=== PATIENT | male | born 1925 | race Caucasian/White ===

== ENCOUNTER → 2016-08-19 | Day surgery (SDC) | payer MEDICARE ==
[~2016-08-19] VITALS: Ht 162.6 cm; Wt 64.0 kg
[~2016-08-19] MED LIST: ALPH400C2 PO; ASPI1TAB69 PO; CHRO200T4 PO; COQ-100C2 PO; CYCLOPENTOLATE HCL 1% OPHT SOLN 2 ML BTL ONE; DICL75TA PO; DORZ2SOL7 EACH EYE; FLURBIPROFEN 0.03% OPHT SOLN 2.5 ML BTL ONE; HYALURONIDASE/LIDOCAINE/EPINEPHRINE/BUPIVACAINE 6 ML SYR ONE; LIDOCAINE HCL 1% 30 ML VIAL ONE; NIAC250T3 PO; PHENYLEPHRINE HCL 10% OPTH SOLN 5 ML BTL ONE; PRAV40TA PO; PROPARACAINE HCL 0.5% OPHT SOLN 15 ML BTL ONE; PROPOFOL 200 MG/20 ML AMP ONE; SINE25TA PO; SODIUM CHLORID 0.9% 500 ML INJ 500 ML ONE; TRAM50TA PO; TROPICAMIDE 1% OPHT SOLN 15 ML BTL ONE; VITA100036 PO
[2016-08-19 09:08] VITALS: BP 114/65; PULSE 65; RESP 18; TEMP 97.8; O2SAT 99
[2016-08-19 09:15] VITALS: PULSE 62
[2016-08-19] MEDS: TOBRAMYCIN/DEXAMETHASONE OPTH OINT 3.5 GM TUBE ONE ×2 (09:40→09:51)
[2016-08-19 10:03] VITALS: TEMP 98
[2016-08-19 10:40] VITALS: BP_DIAS 66; PULSE 68; RESP 16; O2SAT 95
--- NOTE | 2016-08-23 10:30 | MP ---
cc: GILMER MARTINEZ M.D. Corrected Copy: 08/27/16 DATE OF SURGERY: 08/19/2016 [facility] [id number] PREOPERATIVE DIAGNOSIS Visually significant cataract, left eye. POSTOPERATIVE DIAGNOSIS Visually significant cataract, left eye. OPERATION Phacoemulsification with posterior chamber lens implantation, left eye. SURGEON Gilmer Martinez MD ANESTHESIA Retrobulbar with MAC. COMPLICATIONS None. PROCEDURE After informed consent was obtained, the patient was brought into the operative suite and placed on appropriate monitors by the Anesthesia Service. The patient had received a prior retrobulbar injection of local anesthetic by the Anesthesia Service in the holding area. The patient's operative eye was then prepped and draped in the usual sterile fashion. A wire lid speculum was placed. A paracentesis incision was made in the peripheral cornea with a 1 mm mp keratome. The anterior chamber was filled with viscoelastic. The anterior chamber was then entered through a stepped, clear corneal incision using a sharp 3 mm mp keratome. A circular tear capsulorrhexis was then made with a bent needle cystitome. Following hydrodissection of the lens nucleus with balanced saline, phacoemulsification of the nucleus was performed using a modified chopping technique. The remaining cortex was removed with irrigation/aspiration. The prior two procedures were both performed using the handpieces of the [employer] phaco unit. The capsular bag was then filled with viscoelastic. The intraocular lens was then injected into the capsular bag and positioned. The type of intraocular lens and its power can be found elsewhere in this chart. The remaining viscoelastic was then removed from the anterior chamber with the IA handpiece. The anterior chamber was reformed with balanced saline. The wound was then closed securely with stromal hydration. It was found to be watertight to an intraocular pressure of at least 30 mmHg by palpation. A small amount of balanced salt solution was then removed through the paracentesis site and the intraocular pressure at the end of the case was approximately 20 by palpation. All drapes were then removed. TobraDex ointment was then placed in the eye, which was closed beneath a semi-pressure patch dressing. The patient tolerated this procedure well and left the operating room awake and alert. The patient is to follow-up in my office in the morning. MD MARY Driscoll /9:55 AM /12:31 PM
== END | disposition home or self-care (01) ==
LOC: PHSDC 07:03
PROVIDERS: ATTEND Optometrist Occupational Vision
DX: H25.12 Age-related nuclear cataract, left eye (principal)
CPT/HCPCS: 00142; 66984; J7040; V2632

== ENCOUNTER 2016-12-12 16:44 | Observation (INO) | payer MEDICARE ==
[2016-12-12] VITALS (10 sets, daily range): BP systolic 91–163; BP diastolic 46–74; PULSE 75–92; RESP 14–20; TEMP 99.2–103; O2SAT 94–97
[~2016-12-12] VITALS: Ht 162.6 cm; Wt 69.4 kg
[~2016-12-12 16:44] MED LIST changes: -CYCLOPENTOLATE HCL 1% OPHT SOLN 2 ML BTL ONE; -FLURBIPROFEN 0.03% OPHT SOLN 2.5 ML BTL ONE; -HYALURONIDASE/LIDOCAINE/EPINEPHRINE/BUPIVACAINE 6 ML SYR ONE; -LIDOCAINE HCL 1% 30 ML VIAL ONE; -PHENYLEPHRINE HCL 10% OPTH SOLN 5 ML BTL ONE; -PROPARACAINE HCL 0.5% OPHT SOLN 15 ML BTL ONE; -PROPOFOL 200 MG/20 ML AMP ONE; -SODIUM CHLORID 0.9% 500 ML INJ 500 ML ONE; -TROPICAMIDE 1% OPHT SOLN 15 ML BTL ONE
--- NOTE | 2016-12-12 17:23 | PD ---
HPI Chief Complaint: Dysuria, Confusion Time Seen by Provider: 17:13 Travel History International Travel<30 days: No Contact w/Intl Traveler<30days: No History of Present Illness HPI 89 year old male presenting with dysuria and hematuria since yesterday. The dysuria is sharp in quality. Associated symptoms include generalized weakness and mild confusion (per caregiver). He denies fever, coughing, shortness of breath, abdominal pain, nausea, vomiting, and diarrhea. Caregivers state that he has a history of bladder cancer with remote chemotherapy and unknown surgical procedure. PFSH Past Medical History Cancer: Yes (BLADDER TUMOR) Cardiovascular Problems: No High Cholesterol: Yes Coronary Artery Disease: Yes Diabetes: No Diminished Hearing: Yes Endocrine: No Glaucoma: Yes (RIGHT EYE ) Genitourinary: No Hepatitis: No Hiatal Hernia: No Hypertension: No Immune Disorder: No Musculoskeletal: Yes (ARTHRITIS) Neurologic: Yes (PARKINSONS) Respiratory: No Thyroid Disease: No Past Surgical History Abdominal Surgery: Yes (RIGHT INGUINAL HERNIA SURGERY) Cardiac Surgery: Yes (CAROTID ARTERY "CLEANED OUT") Ear Surgery: No Endocrine Surgery: No Eye Surgery: Yes (RIGHT EYE GROWTH REMOVAL, CATARACT SX RIGHT EYE) Genitourinary Surgery: Yes (BLADDER TUMOR CANCER REMOVED) Gynecologic Surgery: No Oral Surgery: Yes (PERMANENT UPPER BRIDGE) Pacemaker: No Thoracic Surgery: No Other Surgery: Yes Social History Alcohol Use: Yes (RARELY) Tobacco Use: No Substance Use: No Allergies-Medications (Allergen,Severity, Reaction): Coded Allergies: No Known Allergies (Verified , 12/12/16) Reported Meds & Prescriptions Reported Meds & Active Scripts Active Reported Carbidopa-Levodopa 25-100 Mg Tab 1 Tab PO 1800 Carbidopa-Levodopa 25-100 Mg Tab 1 Tab PO 1400 Carbidopa-Levodopa 25-100 Mg Tab 2 Tab PO 10AM Carbidopa-Levodopa 25-100 Mg Tab 1 Tab PO 6AM Ecotrin Low Strength (Aspirin) 81 Mg Tabdr 81 Mg PO DAILY Co Q 10 (Coenzyme Q10 (Ubidecarenone)) 100 Mg Cap Niacin 500 Mg Tab 250 Mg PO DAILY Tramadol (Tramadol HCl) 50 Mg Tab 50 Mg PO TID PRN Diclofenac Sodium DR (Diclofenac Sodium) 75 Mg Tabdr 75 Mg PO BID Vitamin D3 (Cholecalciferol) 1,000 Unit Cap 1,000 Units PO DAILY Cosopt Opth Drops (Dorzolamide-Timolol Opth Drops) 22.3-6.8 Mg/Ml Soln 1 Drop EACH EYE BID Pravachol (Pravastatin) 40 Mg Tab 40 Mg PO DAILY Review of Systems Except as stated in HPI: all other systems reviewed are Neg Physical Exam Narrative GENERAL: WD/WN in NAD. Elederly male. Holding still with parkinsonian gaze. SKIN: Warm and dry. HEAD: Atraumatic. Normocephalic. EYES: Pupils equal and round. No scleral icterus. No injection or drainage. ENT: No nasal bleeding or discharge. Mucous membranes pink and moist. NECK: Trachea midline. No JVD. CARDIOVASCULAR: Regular rate and rhythm. RESPIRATORY: No accessory muscle use. Clear to auscultation. Breath sounds equal bilaterally. GASTROINTESTINAL: Abdomen soft, non-tender, nondistended. Hepatic and splenic margins not palpable. MUSCULOSKELETAL: Extremities without clubbing, cyanosis, or edema. No obvious deformities. NEUROLOGICAL: Awake and alert. No obvious cranial nerve deficits. Motor grossly within normal limits. Five out of 5 muscle strength in the arms and legs. Normal speech. PSYCHIATRIC: Appropriate mood and affect; insight and judgment normal. Data Data Last Documented VS Vital Signs Date Time Temp Pulse Resp B/P Pulse Ox O2 Delivery O2 Flow Rate FiO2 12/12/16 20:39 99.7 12/12/16 20:20 78 19 91/46 96 Nasal Cannula 2 Orders Urinalysis - C+S If Indicated (12/12/16 17:15) Complete Blood Count With Diff (12/12/16 17:33) Comprehensive Metabolic Panel (12/12/16 17:33) Chest, Single Ap (12/12/16 17:33) Blood Glucose (12/12/16 17:33) Ecg Monitoring (12/12/16 17:33) Iv Access Insert/Monitor (12/12/16 17:33) Oximetry (12/12/16 17:33) Sodium Chloride 0.9% Flush (Ns Flush) (12/12/16 17:45) Urine Culture (12/12/16 17:50) Sodium Chlorid 0.9% 500 Ml Inj (Ns 500 M (12/12/16 19:15) Ceftriaxone Inj (Rocephin Inj) (12/12/16 19:15) Blood Culture (12/12/16 19:05) Lactic Acid (12/12/16 19:05) Acetaminophen (Tylenol) (12/12/16 19:45) Azithromycin Inj (Zithromax Inj) (12/12/16 19:45) Carbidopa-Levodopa 25-100 Mg (Sinemet 25 (12/12/16 20:15) Admit Order (Ed Use Only) (12/12/16 ) ^ Saline Lock (12/12/16 20:46) Resp Oxygen Frank C Titrat 1-4 L (12/12/16 ) Notify Dr: Other (12/12/16 20:46) Sodium Chloride 0.9% Flush (Ns Flush) (12/12/16 21:00) Sodium Chloride 0.9% Flush (Ns Flush) (12/12/16 21:00) Labs Laboratory Tests Test 12/12/16 12/12/16 12/12/16 17:50 18:14 19:20 Urine Collection Type CLEAN CATCH Urine Color YELLOW Urine Turbidity MOD Urine pH 6.0 Urine Specific [place] 1.023 Urine Protein 100 mg/dL Urine Glucose (UA) NEG mg/dL Urine Ketones TRACE mg/dL Urine Occult Blood LARGE Urine Nitrite NEG Urine Bilirubin NEG Urine Leukocyte Esterase MOD Urine RBC 25-49 /hpf Urine WBC 100-200 /hpf Urine WBC Clumps MOD Urine Squamous Epithelial 0-5 /hpf Cells Urine Amorphous Sediment FEW Urine Bacteria MOD /hpf Microscopic Urinalysis Comment CULTURE INDICATED Urine Collection Time 1750 White Blood Count 12.4 TH/MM3 Red Blood Count 3.98 MIL/MM3 Hemoglobin 12.0 GM/DL Hematocrit 36.5 % Mean Corpuscular Volume 91.6 FL Mean Corpuscular Hemoglobin 30.2 PG Mean Corpuscular Hemoglobin 33.0 % Concent Red Cell Distribution Width 14.1 % Platelet Count 179 TH/MM3 Mean Platelet Volume 8.0 FL Neutrophils (%) (Auto) 91.6 % Lymphocytes (%) (Auto) 3.4 % Monocytes (%) (Auto) 4.5 % Eosinophils (%) (Auto) 0.2 % Basophils (%) (Auto) 0.3 % Neutrophils # (Auto) 11.4 TH/MM3 Lymphocytes # (Auto) 0.4 TH/MM3 Monocytes # (Auto) 0.6 TH/MM3 Eosinophils # (Auto) 0.0 TH/MM3 Basophils # (Auto) 0.0 TH/MM3 CBC Comment DIFF FINAL Differential Comment Sodium Level 137 MEQ/L Potassium Level 4.8 MEQ/L Chloride Level 104 MEQ/L Carbon Dioxide Level 26.2 MEQ/L Anion Gap 7 MEQ/L Blood Urea Nitrogen 48 MG/DL Creatinine 1.70 MG/DL Estimat Glomerular Filtration 38 ML/MIN Rate Random Glucose 128 MG/DL Calcium Level 9.1 MG/DL Total Bilirubin 1.1 MG/DL Aspartate Amino Transf 27 U/L (AST/SGOT) Alanine Aminotransferase 9 U/L (ALT/SGPT) Alkaline Phosphatase 118 U/L Total Protein 8.0 GM/DL Albumin 3.5 GM/DL Lactic Acid Level 1.6 mmol/L MDM Medical Decision Making Medical Screen Exam Complete: Yes Emergency Medical Condition: Yes Differential Diagnosis Complicated UTI, sepsis, altered mental status, dementia, delirium, pneumonia. Narrative Course Patient was roomed in emergency department, signs symptoms consistent, acute UTI. No surgical criteria on vital signs, with blood cell count just over 12, 000. While patient was in the emergency department he spiked temperature to 103. Mechanized answers criteria at this time coupled with his mild delirium this would meet admission criteria. This was discussed with the caregivers who are agreeable. Blood cultures were drawn lactic acid was drawn, fluid resuscitation was started. Lactic acid pending at this time. Will be started on Rocephin. Urine culture sent. Hospitalist paged for admission. Discussed with Dr. Burks at 20:00 at the end of my shift to admit patient when hospitalist calls back. Sepsis Criteria SIRS Criteria (2 or more): Temp > 100.9 or < 96.8, WBC > 96671, < 4000 or > 10 % bands Sepsis Criteria (SIRS+source): Infect source susp/known Criteria Outcome: Meets sepsis criteria Diagnosis Primary Impression: UTI (urinary tract infection) Additional Impressions: Sepsis Delirium LUCI (acute kidney injury) Admitting Information Admitting Physician Requests: Admit Condition: Stable Bang Sandhu MD Dec 12, 2016 17:23
[2016-12-12] MEDS ORDERED: CO Q100C9 (17:29)
[2016-12-12] MEDS ORDERED: NIAC500T5 PO (17:29)
[2016-12-12] MEDS ORDERED: ASPI-147 PO (17:29)
[2016-12-12] MEDS ORDERED: SODIUM CHLORIDE 0.9% FLUSH 5 ML FLUSH IV FLUSH PRN (17:45)
--- NOTE | 2016-12-12 17:49 | RADRPT ---
EXAM DATE/TIME: 12/12/2016 17:42 [facility] COMPARISON: CHEST SINGLE AP, February 12, 2016, 13:00. INDICATIONS : Weakness, syncope, MEDICAL HISTORY : None. SURGICAL HISTORY : None. ENCOUNTER: Initial ACUITY: 1 day PAIN SCORE: 0/10 LOCATION: Bilateral chest FINDINGS: A single view of the chest demonstrates cardiomegaly with bibasilar densities. Tortuous thoracic aort a.. Osseous structures are intact. Scoliosis and degenerative changes. Calcified granuloma right upp er lobe. Left humeral prosthesis CONCLUSION: Cardiomegaly with bibasilar densities likely atelectasis. Wong Gee MD on December 12, 2016 at 17:48 Board Certified Radiologist. This report was verified electronically.
[2016-12-12 18:25] LABS: AUTOMATED NEUTROPHIL # 11.4 TH/MM3 (1.8-7.7); BASOPHIL % 0.3 % (0.0-2.0); EOSINOPHIL % 0.2 % (0.0-4.0); HEMATOCRIT 36.5 % (39.0-51.0); LYMPH % 3.4 % (9.0-44.0); LYMPHOCYTE # 0.4 TH/MM3 (1.0-4.8); MEAN CELL VOLUME 91.6 FL (80.0-100.0); MEAN CORPUSCULAR HEMOGLOBIN 30.2 PG (27.0-34.0); MONO % 4.5 % (0.0-8.0); NEUT % 91.6 % (16.0-70.0); PLATELET COUNT 179 TH/MM3 (150-450); RED BLOOD COUNT 3.98 MIL/MM3 (4.50-5.90); RED CELL DISTRIBUTION WIDTH 14.1 % (11.6-17.2); WHITE BLOOD COUNT 12.4 TH/MM3 (4.0-11.0)
[2016-12-12 18:26] LABS: BLOOD, URINE LARGE (NEG); GLUCOSE,URINE NEG (NEG); KETONE, URINE TRACE mg/dL (NEG); NITRITE,URINE NEG (NEG)
[2016-12-12 18:28] LABS: HEMO FLAGS DIFF FINAL
[2016-12-12 18:33] LABS: METHOD OF COLLECTION CLEAN CATCH; URINE COLOR YELLOW (YELLW/STRAW)
[2016-12-12 18:34] LABS: CHLORIDE 104 MEQ/L (98-107); SODIUM (NA) 137 MEQ/L (136-145)
[2016-12-12 18:34] LABS: BACTERIA, URINE MOD /hpf; COMMENT (UR) CULTURE INDICATED; COMMENT2 (UR) MUCOUS PRESENT; CULTURE IF INDICATED CULTURE INDICATED; SQUAMOUS EPITHELIAL CELL URINE 0-5 /hpf (0-5); WBC, URINE 100-200 /hpf (0-5)
[2016-12-12 18:38] LABS: ANION GAP 7 MEQ/L (5-15); BICARBONATE 26.2 MEQ/L (21.0-32.0); BLOOD UREA NITROGEN 48 MG/DL (7-18)
[2016-12-12 18:41] LABS: ALT (GPT) 9 U/L (12-78); AST (GOT) 27 U/L (15-37); GLOMERULAR FILTRATION RATE 38 ML/MIN (>89)
[2016-12-12 18:43] LABS: TOTAL BILIRUBIN ADULT 1.1 MG/DL (0.2-1.0)
[2016-12-12 18:44] LABS: ALKALINE PHOSPHATASE 118 U/L (45-117)
[2016-12-12 18:55] LABS: POTASSIUM 4.8 MEQ/L (3.5-5.1)
[2016-12-12] MEDS ORDERED: SODIUM CHLORID 0.9% 500 ML INJ 500 ML IV ONE ×2 (19:15→21:00)
[2016-12-12] MEDS ORDERED: cefTRIAXone INJ 1,000 MG in SODIUM CHLORIDE 0.9% INJ 100 ML IV ONE (19:15)
[2016-12-12] MEDS ORDERED: AZITHROMYCIN INJ 500 MG in SODIUM CHLOR 0.9% 250 ML INJ 250 ML IV ONE (19:45)
[2016-12-12] MEDS ORDERED: ACETAMINOPHEN 500 MG CPLT PO ONE (19:45)
[2016-12-12] MEDS ORDERED: CARB25TA9 PO ×4 (19:52)
[2016-12-12] MEDS ORDERED: CARBIDOPA/LEVODOPA 25 MG/100 MG TAB PO SCH (20:15)
--- NOTE | 2016-12-12 20:56 | PD ---
Physical Exam Date Seen by Provider: Dec 12, 2016 Time Seen by Provider: 20:[address] Sandhu Data Data Last Documented VS Vital Signs Date Time Temp Pulse Resp B/P Pulse Ox O2 Delivery O2 Flow Rate FiO2 12/12/16 20:39 99.7 12/12/16 19:00 92 20 138/69 95 Room Air Orders Urinalysis - C+S If Indicated (12/12/16 17:15) Complete Blood Count With Diff (12/12/16 17:33) Comprehensive Metabolic Panel (12/12/16 17:33) Chest, Single Ap (12/12/16 17:33) Blood Glucose (12/12/16 17:33) Ecg Monitoring (12/12/16 17:33) Iv Access Insert/Monitor (12/12/16 17:33) Oximetry (12/12/16 17:33) Sodium Chloride 0.9% Flush (Ns Flush) (12/12/16 17:45) Urine Culture (12/12/16 17:50) Sodium Chlorid 0.9% 500 Ml Inj (Ns 500 M (12/12/16 19:15) Ceftriaxone Inj (Rocephin Inj) (12/12/16 19:15) Blood Culture (12/12/16 19:05) Lactic Acid (12/12/16 19:05) Acetaminophen (Tylenol) (12/12/16 19:45) Azithromycin Inj (Zithromax Inj) (12/12/16 19:45) Carbidopa-Levodopa 25-100 Mg (Sinemet 25 (12/12/16 20:15) Admit Order (Ed Use Only) (12/12/16 ) ^ Saline Lock (12/12/16 20:46) Resp Oxygen Frank C Titrat 1-4 L (12/12/16 ) Notify Dr: Other (12/12/16 20:46) Sodium Chloride 0.9% Flush (Ns Flush) (12/12/16 21:00) Sodium Chloride 0.9% Flush (Ns Flush) (12/12/16 21:00) Labs Laboratory Tests Test 12/12/16 12/12/16 12/12/16 17:50 18:14 19:20 Urine Collection Type CLEAN CATCH Urine Color YELLOW Urine Turbidity MOD Urine pH 6.0 Urine Specific [place] 1.023 Urine Protein 100 mg/dL Urine Glucose (UA) NEG mg/dL Urine Ketones TRACE mg/dL Urine Occult Blood LARGE Urine Nitrite NEG Urine Bilirubin NEG Urine Leukocyte Esterase MOD Urine RBC 25-49 /hpf Urine WBC 100-200 /hpf Urine WBC Clumps MOD Urine Squamous Epithelial 0-5 /hpf Cells Urine Amorphous Sediment FEW Urine Bacteria MOD /hpf Microscopic Urinalysis Comment CULTURE INDICATED Urine Collection Time 1750 White Blood Count 12.4 TH/MM3 Red Blood Count 3.98 MIL/MM3 Hemoglobin 12.0 GM/DL Hematocrit 36.5 % Mean Corpuscular Volume 91.6 FL Mean Corpuscular Hemoglobin 30.2 PG Mean Corpuscular Hemoglobin 33.0 % Concent Red Cell Distribution Width 14.1 % Platelet Count 179 TH/MM3 Mean Platelet Volume 8.0 FL Neutrophils (%) (Auto) 91.6 % Lymphocytes (%) (Auto) 3.4 % Monocytes (%) (Auto) 4.5 % Eosinophils (%) (Auto) 0.2 % Basophils (%) (Auto) 0.3 % Neutrophils # (Auto) 11.4 TH/MM3 Lymphocytes # (Auto) 0.4 TH/MM3 Monocytes # (Auto) 0.6 TH/MM3 Eosinophils # (Auto) 0.0 TH/MM3 Basophils # (Auto) 0.0 TH/MM3 CBC Comment DIFF FINAL Differential Comment Sodium Level 137 MEQ/L Potassium Level 4.8 MEQ/L Chloride Level 104 MEQ/L Carbon Dioxide Level 26.2 MEQ/L Anion Gap 7 MEQ/L Blood Urea Nitrogen 48 MG/DL Creatinine 1.70 MG/DL Estimat Glomerular Filtration 38 ML/MIN Rate Random Glucose 128 MG/DL Calcium Level 9.1 MG/DL Total Bilirubin 1.1 MG/DL Aspartate Amino Transf 27 U/L (AST/SGOT) Alanine Aminotransferase 9 U/L (ALT/SGPT) Alkaline Phosphatase 118 U/L Total Protein 8.0 GM/DL Albumin 3.5 GM/DL Lactic Acid Level 1.6 mmol/L [facility] Medical Record Reviewed: Yes Supervised Visit with [facility]: No Differential Diagnosis please refer to Dr Sandhu's dictation Narrative Course per Dr Sandhu's request admit patient to [facility] service for UTI sepsis criteria has had bcx and lactic acid obtained; administered tylenol, rocephin, and azithromycin after temp elevation 103F; and repeat temp 99.7F, lactic 1.6; discussed with Dr Fried in detail Physician Communication Physician Communication discussed with Dr Fried --will admit as OBS aware dx uti/sepsis also requests admit under Dr Singh's service Diagnosis Primary Impression: UTI (urinary tract infection) Additional Impressions: Delirium Sepsis LUCI (acute kidney injury) Admitting Information Admitting Physician Requests: Observation Condition: Stable Joan Burks MD Dec 12, 2016 20:56
[2016-12-12] MEDS ORDERED: SODIUM CHLORIDE 0.9% FLUSH 10 ML FLUSH IV FLUSH SCH (21:00)
[2016-12-12] MEDS ORDERED: SODIUM CHLORIDE 0.9% FLUSH 10 ML FLUSH IVF PRN (21:00)
[2016-12-12] MEDS ORDERED: ONDANSETRON HCL 4 MG/2 ML VIAL IVP PRN (22:00)
[2016-12-12] MEDS ORDERED: traMADol HCL 50 MG TAB PO PRN (22:00)
[2016-12-12] MEDS ORDERED: SODIUM CHLORIDE 0.9% FLUSH 10 ML FLUSH IV FLUSH PRN (22:00)
[2016-12-12] MEDS ORDERED: ACETAMINOPHEN 325 MG TAB PO PRN (22:00)
[2016-12-12] MEDS: DORZOLAMIDE/TIMOLOL OPTH SOLN 10 ML BTL EACH EYE SCH (22:00)
[2016-12-12] MEDS ORDERED: NALOXONE HCL 0.4 MG/ML AMP IV PRN (22:00)
[2016-12-12] MEDS: cefTRIAXone INJ 1,000 MG in SODIUM CHLORIDE 0.9% INJ 100 ML IV SCH (23:39)
[2016-12-12] MEDS: SODIUM CHLOR 0.9% 1000 ML INJ 1,000 ML IV SCH (23:39)
[2016-12-13] VITALS (7 sets, daily range): BP systolic 115–161; BP diastolic 66–89; PULSE 61–84; RESP 16–20; TEMP 97–98.5; O2SAT 94–98
[2016-12-13] MEDS: CARBIDOPA/LEVODOPA 25 MG/100 MG TAB PO SCH ×3 (06:21→14:52)
[2016-12-13 07:04] LABS: AUTOMATED NEUTROPHIL # 8.2 TH/MM3 (1.8-7.7); BASOPHIL % 0.2 % (0.0-2.0); EOSINOPHIL % 0.1 % (0.0-4.0); HEMATOCRIT 31.4 % (39.0-51.0); LYMPH % 9.6 % (9.0-44.0); LYMPHOCYTE # 0.9 TH/MM3 (1.0-4.8); MEAN CORPUSCULAR HEMOGLOBIN 30.3 PG (27.0-34.0); MEAN CORPUSCULAR HGB CONC 32.6 % (32.0-36.0); MONO % 7.2 % (0.0-8.0); NEUT % 82.9 % (16.0-70.0); PLATELET COUNT 125 TH/MM3 (150-450); RED BLOOD COUNT 3.37 MIL/MM3 (4.50-5.90); RED CELL DISTRIBUTION WIDTH 14.2 % (11.6-17.2); WHITE BLOOD COUNT 9.8 TH/MM3 (4.0-11.0)
[2016-12-13 07:06] LABS: HEMO FLAGS AUTO DIFF
[2016-12-13 07:30] LABS: BANDS 17 % (0-6); NEUTROPHIL # MANUAL DIFF 8.4 TH/MM3 (1.8-7.7); POLYS (SEG NEUTROPHILS) 69 % (16-70); WBC DIFF SAMPLE 100
[2016-12-13 07:31] LABS: PLATELET ESTIMATE SMEAR NORMAL (NORMAL); PLATELET MORPHOLOGY NORMAL (NORMAL); SCAN/DIFF FINAL DIFF MANUAL
[2016-12-13 07:32] LABS: BICARBONATE 24.3 MEQ/L (21.0-32.0); POTASSIUM 3.5 MEQ/L (3.5-5.1)
[2016-12-13] MEDS: PRAVASTATIN SOD 40 MG TAB PO SCH (08:24)
[2016-12-13] MEDS: SODIUM CHLOR 0.9% 1000 ML INJ 1,000 ML IV SCH (08:24)
[2016-12-13] MEDS: CHOLECALCIFEROL (VIT D3) 1000 UNIT TAB PO SCH (08:24)
[2016-12-13] MEDS: ASPIRIN EC 81 MG TABEC PO SCH (08:24)
[2016-12-13] MEDS: DORZOLAMIDE/TIMOLOL OPTH SOLN 10 ML BTL EACH EYE SCH ×2 (08:29→21:23)
[2016-12-13] MEDS: SODIUM CHLORIDE 0.9% FLUSH 10 ML FLUSH IV FLUSH SCH ×2 (08:29→21:24)
[2016-12-13] MEDS: NIACIN 250 MG CONTROLLED RELEASE TAB PO SCH (08:29)
[2016-12-13] MEDS: DICLOFENAC SODIUM 75 MG DELAYED RELEASE TAB PO SCH ×2 (12:04→21:23)
--- NOTE | 2016-12-13 12:44 | MH ---
cc: MAYCO BOND DATE OF ADMISSION: 12/12/2016 ADMITTING DIAGNOSIS UTI. Hematuria HISTORY OF PRESENT ILLNESS Mr. Esqueda is a very pleasant 89-year-old gentleman with a history of Parkinson's who was brought to the emergency room by his daughter who is his primary extractor puller. According to the daughter he was in his usual state of health, active, they had been out to lunch to [place] the day prior but she noticed that the morning that she brought him to the emergency room he had a little bit of more decreased appetite. He got progressively weaker during the day, just a generalized type weakness. His appetite really did not diminish much. He normally he is continent of urine. She states that he wears Depends just in case there is an accident. She did notice there was some bloody, like a brownish colored urine in his Depends earlier in the day, then later on in the day he stated he had to go to the bathroom and was incontinent, unable to make it to the bathroom and the urine was again dark and bloody. He also complained of burning on urination. He denied any actual pain at all. No real fever. She did say he felt a little bit warm to touch. No other complaints except for the dysuria, dark urine and generalized weakness. For this reason she brought him to the emergency room. PAST MEDICAL HISTORY 1. Significant in that she has had bladder cancer and BPH. 2. She has been followed by Dr. Holt of Urology. It looks like the last visit was in 2014 and cystoscopies have been clean. Does not look like he cortez returned. 3. History of carotid artery disease. 4. [facility], he has had a history of chronic anemia with hemoglobin of 11.4 and hematocrit 35.8 in October of 2016. He has had CKD2 with creatinine of 1.07 and a GFR of 61 in October of 2016. 5. Lumbar disk degeneration with lumbosacral radiculitis. His pain is apparently controlled with tramadol. He does have some as well diclofenac. 6. He is hard of hearing. 7. He has a history of hyperlipidemia. 8. Parkinson's disease. He does follow regularly with Dr. Lemus. They did have to adjust his carbidopa because of episodes of hypotension. 9. Glaucoma. PAST SURGICAL HISTORY 1. Cataract surgery. 2. Inguinal hernia repair. 3. Rotator cuff repair. 4. TURP. 5. ORIF of the right hip. ALLERGIES He denies. MEDICATIONS 1. Baby aspirin. 2. Carbidopa-Levodopoa 25/100 one tablet at 06:00 a.m., 2 at 10 p.m., one at 2:00 p.m. and one at 6 p.m. 3. He takes baclofen 75 mg twice a day. 4. He takes dorzolamide/Timolol 1 drop in each eye twice a day. 5. Pravastatin 40 mg daily. 6. Tramadol 50 mg three times per day as needed for pain. 7. Vitamin D3. 8. CoQ10. 9. Niacin. HABITS He does not smoke. He occasionally consumes alcohol. SOCIAL HISTORY He requires help with his ADLs. His daughter is his caregiver and is with him in the hospital room. He is unable to walk independently. He is currently using a walker with wheels and the golf balls on the back a this time. He is and a retired electrician manager. REVIEW OF SYSTEMS He does not really complain of much except for the dysuria. No cough or congestion. No shortness of breath. No chest pain, no palpitations. No abdominal pain. No change in his bowel movements, just burning on urination which already this morning has improved. He does have right hip pain and right sciatic pain on occasion. He does not complain of any swelling in his legs. PHYSICAL EXAMINATION VITAL SIGNS: Temperature is 98.5, pulse is 78, respirations 17, blood pressure was up to 161/89, pulse ox of 95%. He is currently on 2 liters. GENERAL: This is a very pleasant elderly gentleman lying comfortably in the hospital bed. He does not appear to be in any acute distress. He is normocephalic and traumatic. HEENT: Extraocular movements intact. He and is intact. He is wearing glasses. He has hearing aids in place. He has a moist oral mucosa. He has a flat facial expression. NECK: Supple. I really see no carotid endarterectomy scars. LUNGS: His lungs are clear to auscultation. HEART: Regular rate and rhythm. He has no ectopy or murmur. ABDOMEN: Good bowel sounds in all four quadrants. No rebound or guarding. EXTREMITIES: He is wearing the SCDs. He does have a flat expression on his face and his speech is not quite as clear. LABORATORY DATA The lab work that was done when he came in showed a white count of 12.4, hemoglobin of 12, hematocrit of 36.5, platelet count of 179. Sodium was 137, potassium 4.8, BUN was 48, creatinine was 1.7, random glucose was 128, lactic acid was 1.6. UA showed was moderately turbid, 100 protein, trace ketones, large occult blood, moderate leukocyte esterase, 25-49 RBCs, urine RBCs 100-200, moderate clumps, moderate bacteria. Culture is indicated. ASSESSMENT AND PLAN An 89-year-old gentleman who presented to the emergency room last night with complaints of generalized weakness and UTI-like symptoms that he was actually getting ready to be discharged with treated for UTI when he did spike a temperature of 103. He has been admitted overnight and placed on antibiotics. Urine culture and blood culture are pending. His fever curve has actually come down overnight. He is actually feeling much better. He says that his urine is clear. Currently at this point we will continue him on his antibiotics. Given his history of bladder cancer and the hematuria, we will do a renal ultrasound. If he continues to do well anticipate hopefully discharge tomorrow in the morning. The chest x-ray did show some atelectasis. He is required some oxygen at this point, a low amount. We will titrate his oxygen. I am also going to start some incentive spirometry. By history there is nothing to indicate that the gentleman has a bronchitis or a pneumonia. For his Parkinson's we will continue his carbi-levodopa. Because of the generalized weakness as well, we will ask physical therapy to see him to make sure that he is safe to go home with his walker, whether or not he needs continued physical therapy. Otherwise we will continue the rest of his home medications. His GFR did drop a little bit from his baseline. I did hydrate him a little bit overnight given the fever and his GFR today was 70. I did discuss with his daughter the use of diclofenac for his arthritis. Apparently this has been a chronic medication for him. We did discuss continuing to monitor his GFR while he was on the medication which apparently his primary care doctor has been doing. Further recommendations as the case develops. MD ARMAND De Leon/JAMAL /11:52 AM /12:24 PM
--- NOTE | 2016-12-13 13:17 | RADRPT ---
EXAM DATE/TIME: 12/13/2016 11:48 [facility] COMPARISON: No previous studies available for comparison. INDICATIONS : Hematuria. Urinary tract infection. History of bladder cancer. MEDICAL HISTORY : Parkinson's. Hypercholesterolemia. Diverticulosis. Glaucoma. Lumbar spondylosis. Coronary artery dise ase. CKD. Bladder tumor. Arthritis. Hyperlipidemia. Abdominal aortic aneurysm. BPH. SURGICAL HISTORY : Carotid endarterectomy. Right eye growth removal. Bilateral cataracts. Permanent upper bridge. Ri ght inguinal hernia surgery. Bladder tumor removed. ORIF right leg. Right rotator cuff repair. Left s houlder reverse. ENCOUNTER: Initial ACUITY: 2 days PAIN SCORE: 2/10 LOCATION: Bilateral flank MEASUREMENTS: RIGHT KIDNEY: 11.2 x 4.4 x 4.3 cm LEFT KIDNEY: 10.1 x 5.0 x 4.5 cm FINDINGS: RIGHT KIDNEY: Renal cortex is normal in thickness and echotexture. No hydronephrosis, stone, or mass. LEFT KIDNEY: Renal cortex is normal in thickness and echotexture. No hydronephrosis, stone, or mass. BLADDER: Mildly distended CONCLUSION: Negative for hydronephrosis or mass. Wallace Flores MD FACR on December 13, 2016 at 13:15 Board Certified Radiologist. This report was verified electronically.
[2016-12-13] MEDS ORDERED: CARBIDOPA/LEVODOPA 25 MG/100 MG TAB PO SCH (18:00)
[2016-12-13] MEDS: cefTRIAXone INJ 1,000 MG in SODIUM CHLORIDE 0.9% INJ 100 ML IV SCH (21:23)
[2016-12-14] VITALS: BP 147/85; PULSE 60; RESP 18; TEMP 96.8; O2SAT 96
[2016-12-14] MEDS: CARBIDOPA/LEVODOPA 25 MG/100 MG TAB PO SCH ×3 (06:14→14:08)
[2016-12-14 07:57] VITALS: BP 156/82; PULSE 64; RESP 16; TEMP 96.8; O2SAT 97
[2016-12-14 09:00] VITALS: O2SAT 95
[2016-12-14] MEDS: PRAVASTATIN SOD 40 MG TAB PO SCH (09:08)
[2016-12-14] MEDS: DICLOFENAC SODIUM 75 MG DELAYED RELEASE TAB PO SCH (09:09)
[2016-12-14] MEDS: CHOLECALCIFEROL (VIT D3) 1000 UNIT TAB PO SCH (09:10)
[2016-12-14] MEDS: DORZOLAMIDE/TIMOLOL OPTH SOLN 10 ML BTL EACH EYE SCH (09:10)
[2016-12-14] MEDS: ASPIRIN EC 81 MG TABEC PO SCH (09:10)
[2016-12-14] MEDS: SODIUM CHLORIDE 0.9% FLUSH 10 ML FLUSH IV FLUSH SCH (09:10)
[2016-12-14] MEDS: NIACIN 250 MG CONTROLLED RELEASE TAB PO SCH (09:16)
--- NOTE | 2016-12-14 11:55 | HHI.PR ---
Subjective Remarks eating, feels stronger no other complaints Objective Vitals Vital Signs Date Time Temp Pulse Resp B/P Pulse Ox O2 Delivery O2 Flow Rate FiO2 12/14/16 07:57 96.8 64 16 156/82 97 12/14/16 00:00 96.8 60 18 147/85 96 12/13/16 21:55 94 21 12/13/16 20:00 98.1 61 16 131/73 96 12/13/16 16:00 66 18 115/66 98 12/13/16 15:30 98 21 12/13/16 12:00 98.2 72 18 141/82 94 12/13/16 12/13/16 12/14/16 15:00 23:00 07:00 Intake Total 0 ml 680 ml 240 ml Output Total 500 ml Balance 0 ml 680 ml -260 ml Intake Oral 0 ml 680 ml 240 ml Output Urine Total 500 ml # Voids 2 1 # Bowel Movements 0 0 0 Result Diagram: 12/13/16 0520 12/13/16 0520 Imaging Last Impressions Renal Ultrasound 12/13/16 0000 Signed Impressions: Service Date/Time: Tuesday, December 13, 2016 11:48 - CONCLUSION: Negative for hydronephrosis or mass. Wallace Flores MD FACR Chest X-Ray 12/12/16 1733 Signed Impressions: Service Date/Time: Monday, December 12, 2016 17:42 - CONCLUSION: Cardiomegaly with bibasilar densities likely atelectasis. Wong Gee MD Objective Remarks Sitting up in bedside eating NAD CTA brittany RRR no edema A/P Problem List: (1) UTI (urinary tract infection) Status: Acute Plan: has remained afebrile since initial temp spike in ER urine culture grew out proteus sensitive to most abx renal ultrasound was negative (2) Parkinson disease Status: Chronic Plan: on sinemet stable (3) LUCI (acute kidney injury) Status: Resolved Plan: gfr improved with hydration closer to baseline (4) Episode of generalized weakness Status: Acute Plan: weakness improved was up in chair several hours yesterday seen by PT would like to have PT [facility] if possible consult placed to case management Assessment and Plan as above Discharge Planning Discharge home today with another 8 days of antibiotics per [facility] EHR has not been back to Dr Holt since 2014 for f/u bladder cancer , pt thinks he may have gone last year daughter will call urologist office discussed with her f/u with Dr Holt as well as Dr Singh in another 1-2 weeks with repeat u/a suspect hematuria due to infection Rufina Fried MD Dec 14, 2016 11:55
[2016-12-14 12:00] VITALS: BP 125/67; PULSE 63; RESP 16; TEMP 96.8; O2SAT 95
[2016-12-14] MEDS ORDERED: BACT800T5 PO (12:26)
--- NOTE | 2016-12-14 12:29 | HHI.FF ---
Face to Face Verification Diagnosis: (1) Episode of generalized weakness Physical Therapy Order: Evaluate and Treat, Improve ambulation, Strength and gait training I have seen patient Gennaro Esqueda on 12/14/16. My clinical findings support the need for the requested home health care services because: Ltd mobility - disease progression Limited ability to care for self I certify that my clinical findings support that this patient is homebound because: Unsteady gait/balance Rufina Fried MD Dec 14, 2016 12:29
== END 2016-12-14 15:06 | disposition home or self-care (01) ==
LOC: PHED 16:44 → PHEDA 20:47 → PH3B 22:04
PROVIDERS: ADMIT Family Medicine; ATTEND Family Medicine
DX: N39.0 Urinary tract infection, site not specified (principal); B96.4 Proteus (mirabilis) (morganii) as the cause of diseases classified elsewhere; R31.9 Hematuria, unspecified; G20 Parkinson's disease; N18.2 Chronic kidney disease, stage 2 (mild); R53.1 Weakness; E78.5 Hyperlipidemia, unspecified; D64.9 Anemia, unspecified; M19.90 Unspecified osteoarthritis, unspecified site; H40.9 Unspecified glaucoma; I25.10 Atherosclerotic heart disease of native coronary artery without angina pectoris; Z85.51 Personal history of malignant neoplasm of bladder; Z79.899 Other long term (current) drug therapy; Z79.82 Long term (current) use of aspirin
CPT/HCPCS: 71010; 76775; 80048; 80053; 81001; 83605; 85007; 85025; 85027; 87040; 87077; 87086; 87186; 94150; 96365; 96375; 97110; 97116; 97162; 99285; G0378; G8987; G8988; J0456; J0696; J7030; J7040; J7050